=== PATIENT | female | born 1940 | race Caucasian/White ===

== ENCOUNTER 2019-11-29 13:50 | Inpatient (IN) | payer MEDICARE, BC ==
[~2019-11-29] VITALS: Ht 165.1 cm; Wt 59.9 kg
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
--- NOTE | 2019-11-29 14:17 | NUR ---
EMT AT BEDSIDE FOR WOUND CARE
[2019-11-29] MEDS ORDERED: TDAP [DIPH/PERTUSSIS/TET] 0.5 ML VIAL IM ONE ×2 (14:26→14:30)
[2019-11-29] MEDS ORDERED: CEFAZOLIN 1 GM in IV NS 0.9% 50 ML IV SCH (14:30)
[2019-11-29 14:33] LABS: BASOPHILS # (AUTO) 0.1 /CMM (0.0-0.2); BASOPHILS % (AUTO) 1.2 % (0.0-2.0); EOSINOPHILS % (AUTO) 1.5 % (0.0-6.0); HEMATOCRIT 36 % (33-45); HEMOGLOBIN 11.6 g/dL (11.5-14.8); LYMPHOCYTES # (AUTO) 0.9 /CMM (0.8-4.8); LYMPHOCYTES % (AUTO) 11.5 % (20.0-44.0); MEAN CORPUSCULAR HGB CONC 32 g/dl (31.0-36.0); MEAN CORPUSCULAR VOLUME 91 fL (82-100); MONOCYTES # (AUTO) 0.5 /CMM (0.1-1.30); MONOCYTES % (AUTO) 6.9 % (2.0-12.0); NEUTROPHILS # (AUTO) 6.1 /CMM (1.8-8.9); NEUTROPHILS % (AUTO) 78.9 % (43.0-81.0); PLATELET COUNT (AUTO) 229 /CMM (150-450); RED BLOOD CELL COUNT(AUTO) 3.94 MIL/uL (4.0-5.2); WHITE BLOOD COUNT (AUTO) 7.7 K/uL (4.3-11.0)
--- NOTE | 2019-11-29 14:37 | NUR ---
XRAY AT BEDSIDE
[2019-11-29 14:39] LABS: CREATININE 0.7 mg/dL (0.6-1.3); POTASSIUM 4.2 mmol/L (3.5-5.1)
--- NOTE | 2019-11-29 14:50 | NUR ---
CALLED SHYAM ARIZA FOR CONSULT, PAGED ROB
[2019-11-29] MEDS ORDERED: METO25TA4 PO (14:55)
[2019-11-29] MEDS ORDERED: RIVA10TA PO (14:55)
[2019-11-29] MEDS ORDERED: ERGO500014 PO (14:55)
--- NOTE | 2019-11-29 15:10 | NUR ---
CALLED ROB RAMIREZ
--- NOTE | 2019-11-29 15:12 | NUR ---
CALLED SHYAM WETZEL, MELANIE MENDEZ
[2019-11-29] MEDS ORDERED: PIPERACILLIN /TAZOBACTAM 3.375 G in IV D5W 50 ML IV ONE (15:30)
--- NOTE | 2019-11-29 16:31 | NUR ---
ORTHO ON-CALL PAGED AGAIN
--- NOTE | 2019-11-29 16:41 | NUR ---
BED 200
[2019-11-29] MEDS ORDERED: MORPHINE SULFATE INJ 2 MG/ML DISP.SYRIN ONE ×2 (16:57→17:47)
[2019-11-29] MEDS ORDERED: IV NS 0.9% 1,000 ML BAG IV ONE (17:00)
[2019-11-29] MEDS ORDERED: MORPHINE SULFATE INJ 2 MG/ML DISP.SYRIN IV ONE (17:00)
--- NOTE | 2019-11-29 17:03 | NUR ---
PT AMBULATED TO THE RESTROOM WITH ASSISTANCE
--- NOTE | 2019-11-29 17:25 | NUR ---
REPORT GIVEN TO JENNIFER HENDRIX FOR [place]
--- NOTE | 2019-11-29 17:44 | NUR ---
EMT AT BEDSIDE FOR SPLINT PLACEMENT
[2019-11-29] MEDS ORDERED: MORPHINE SULFATE INJ 2 MG/ML DISP.SYRIN IV PRN ×2 (18:00→19:30)
--- NOTE | 2019-11-29 18:00 | NUR ---
PT TRANSFERED TO BED 200 MS
--- NOTE | 2019-11-29 18:05 | NUR ---
RN MS NOTES RECEIVED PT FROM E.R. STAFF, VIA VIV, PT IS AWAKE, ALERT AND ORIENTED, ASSISTED TO BED, MADE COMFORTABLE, ROOM SET UP ORIENTATION PROVIDED TO PT, VERBALIZED UNDERSTANDING, NO COMPLAINT AT THIS TIME, SPLINT AT LEFT WRIST IN PLACE, NOT IN DISTRESS, AWAITING ADMITTING ORDERS FROM DR. ARGUELLO, KEPT PT COMFORTABLE.
[2019-11-29 18:30] VITALS: BP 133/69
--- NOTE | 2019-11-29 19:00 | NUR ---
MS CAP SIZER NOTE RECEIVED PATIENT IN BED FROM DAY SHIFT RN. TOLERATING ROOM AIR. RESPIRATIONS ARE EVEN AND UNLABORED. NO S/S SOB NOTED. IN NO APPARENT DISTRESS. IV ACCESS IN RFA#20 PATENT AND SALINE LOCKED. INITIAL PHYSICAL ASSESSMENT COMPLETED AT THIS TIME. SKIN ASSESSMENT COMPLETED AND PICTURES TAKEN OF WOUNDS PLACED IN CHART. PATIENT HAS A ARM STABILIZERS FOR THE LEFT WRIST. BED IS LOW AND LOCKED, SIDE RIALS UP X2, HOB ELEVATED IN HIGH FOWLERS POSITION. DAUGHTER AT BEDSIDE. CALL LIGHT WITHIN REACH. WILL CONTINUE TO MONITOR.
--- NOTE | 2019-11-29 19:02 | NUR ---
RN MS NOTES RECEIVED ORDER FROM DR. BRASWELL FOR ORIF OF LEFT WRIST, PT INFORMED, CONSENTS GIVEN, PLAN FOR O.R. AT 9:30, VITAL SIGNS TAKEN AND RECORDED.
[2019-11-29] MEDS ORDERED: IV NS 0.9% 1,000 ML IV PRN (19:06)
[2019-11-29] MEDS ORDERED: ZOLPIDEM TARTRATE 5 MG TABLET PO PRN (19:30)
[2019-11-29] MEDS ORDERED: ONDANSETRON HCL/PF 4 MG/2 ML VIAL IVP PRN (19:30)
[2019-11-29] MEDS ORDERED: HYDROCODONE/APAP 5/325MG 1 EACH TABLET PO PRN (19:30)
[2019-11-29] MEDS ORDERED: MAG HYDROX/AL HYDROX/SIMETH 30 ML UDC PO PRN (19:30)
[2019-11-29] MEDS ORDERED: MAGNESIUM HYDROXIDE 30 ML UDC PO PRN (19:30)
[2019-11-29] MEDS ORDERED: Z GUARD REMEDY 2 OZ OINT TP PRN (19:30)
[2019-11-29 20:00] VITALS: BP 128/54
[2019-11-29] MEDS: PIPERACILLIN /TAZOBACTAM 3.375 G in IV D5W 50 ML IV SCH ×2 (20:33→23:41)
[2019-11-29] MEDS ORDERED: MIDAZOLAM HCL 2 MG/2ML VIAL ONE (20:53)
[2019-11-29] MEDS ORDERED: FENTANYL PF 250MCG/5ML AMPUL ONE (20:54)
[2019-11-29] MEDS ORDERED: FAMOTIDINE/PF INJ 20 MG/2 ML VIAL IV ONE (20:54)
[2019-11-29] MEDS ORDERED: ROCURONIUM BROMIDE 50 MG/5 ML ONE (20:55)
--- NOTE | 2019-11-29 21:00 | NUR ---
MS RN NOTE PATIENT DID NOT GO TO SURGERY SCHEDULED D/T NPO STATUS NOT MAINTAINED. DAUGHTER AT BEDSIDE HAS BEEN PROVIDING MOTHER WITH WATER SINCE THEY HAVE BEEN HOSPITALIZED. INCIDENT REPORT COMPLETED. WILL MAINTAIN NPO STATUS FROM 0000 UNTIL SURGERY AT 0700.
--- NOTE | 2019-11-29 22:09 | NUR ---
MS RN NOTE ADMINISTERED PRN NORCO 5/325 FOR PAIN 5/10 IN LEFT WRIST. WILL CONTINUE TO MONITOR.
[2019-11-30] VITALS (13 sets, daily range): BP systolic 104–128; BP diastolic 50–72
[2019-11-30] MEDS: PIPERACILLIN /TAZOBACTAM 3.375 G in IV D5W 50 ML IV SCH (05:19)
[2019-11-30 06:12] LABS: BASOPHILS % (AUTO) 0.3 % (0.0-2.0); HEMATOCRIT 32 % (33-45); HEMOGLOBIN 10.7 g/dL (11.5-14.8); LYMPHOCYTES # (AUTO) 0.6 /CMM (0.8-4.8); LYMPHOCYTES % (AUTO) 8.8 % (20.0-44.0); MEAN CORPUSCULAR HGB CONC 33 g/dl (31.0-36.0); MEAN CORPUSCULAR VOLUME 90 fL (82-100); MONOCYTES # (AUTO) 0.9 /CMM (0.1-1.30); NEUTROPHILS # (AUTO) 5.7 /CMM (1.8-8.9); NEUTROPHILS % (AUTO) 78.9 % (43.0-81.0); PLATELET COUNT (AUTO) 205 /CMM (150-450); WHITE BLOOD COUNT (AUTO) 7.2 K/uL (4.3-11.0)
[2019-11-30 06:43] LABS: CHOLESTEROL 125 mg/dL (<200); HDL CHOLESTEROL 73 mg/dL (40-60); LDL 49 mg/dL (0-99); TRIGLYCERIDES 23 mg/dL (30-150)
[2019-11-30 06:47] LABS: ALANINE AMINOTRANSFERASE 33 U/L (12-78); ALBUMIN 2.8 g/dL (3.4-5.0); ALKALINE PHOSPHATASE 82 U/L (46-116); ASPARTATE AMINOTRANSFERASE 22 U/L (15-37); BILIRUBIN,TOTAL 0.6 mg/dL (0.2-1.0); CALCIUM, SERUM 8.7 mg/dL (8.5-10.1); CARBON DIOXIDE 24 mmol/L (21-32); CHLORIDE 104 mmol/L (98-107); CREATININE 0.5 mg/dL (0.6-1.3); GLUCOSE 154 mg/dL (74-106); PHOSPHORUS 3.2 mg/dL (2.5-4.9); POTASSIUM 3.7 mmol/L (3.5-5.1); SODIUM SERUM 138 mmol/L (136-145); UREA NITROGEN, BLOOD 14 mg/dL (7-18)
--- NOTE | 2019-11-30 07:00 | NUR ---
MS RN NOTE 0700 PATIENT WAS TRANSPORTED TO SURGERY BY 2 O.R. NURSES. WILL ENDORSE TO NEXT SHIFT.
[2019-11-30] MEDS ORDERED: BACITRACIN 50000 UNITS/VIAL ONE ×2 (07:06→08:36)
[2019-11-30] MEDS ORDERED: BUPIVACAINE 0.5 % PF 150 MG/30 ML VIAL ONE (07:06)
[2019-11-30] MEDS ORDERED: ANESTHESIA TRAY IN PYXIS 1 EA TRAY MC ONE (07:06)
--- NOTE | 2019-11-30 07:10 | NUR ---
MS RN OPENING NOTE PATIENT TRANSPORTED, GOING TO SURGERY. PATIENT IN NO ACUTE DISTRESS. NO SOB NOTED. PATIENT BREATHING IS EVEN AND UNLABORED.
[2019-11-30] MEDS ORDERED: POLYMYXIN B SULFATE 500,000 UNITS VIAL MC ONE (07:46)
[2019-11-30] MEDS: DOCUSATE SODIUM 100 MG CAPSULE PO SCH ×2 (08:02→17:15)
--- NOTE | 2019-11-30 08:03 | NUR ---
MS RN NOTE HELD DOCUSATE, PATIENT NPO AND IN SURGERY AT THIS TIME.
--- NOTE | 2019-11-30 08:40 | NUR ---
WOUND CARE CONSULT: PT IN O.R. AT THIS TIME. WILL SEE PRN.
--- NOTE | 2019-11-30 10:15 | NUR ---
MS RN NOTE PATIENT ARRIVED BACK TO ROOM FROM SURGERY. PATIENT IN NO ACUTE DISTRESS. NO SOB NOTED. PATIENT BREATHING IS EVEN AND UNLABORED. VITAL SIGNS WNL. PATIENT SURGICAL DRESSING DRY AND INTACT. WILL FOLLOW UP POST OP ORDERS. WILL CONTINUE TO MONITOR.
[2019-11-30] MEDS ORDERED: HYDROCODONE/APAP 5/325MG 1 EACH TABLET PO PRN (10:30)
--- NOTE | 2019-11-30 10:59 | NUR ---
WOUND CARE CONSULT: PT SEEN FOR SKIN ASSESSMENT AND NOTED TO HAVE RT AND LEFT WRIST PUNCTURE WOUNDS AND LEFT LOWER LEG PUNCTURE WOUNDS, S/P DOG BITES, PRESENT ON ADMISSION. PT ALSO HAS LEFT ARM SURGICAL SITE WITH SUTURES AND XEROFORM DSG. PT SEEN WITH DR BRASWELL AND PLASTIC SURGERY/DPM CONSULTS REQUESTED. DR BETTS NOTIFIED.
[2019-11-30] MEDS: IV LR 1000 ML 1,000 ML IV PRN (11:04)
--- NOTE | 2019-11-30 11:38 | NUR ---
MS RN NOTE CALLED TO DEPARTMENT OF PUBLIC HEALTH, SPOKE WITH DR. MICHELLE VICENTE REGARDING PATIENTS DOG BITE ENCOUNTER AND RECOMMENDATIONS REGARDING RABIES SHOT. PER MD IT IS HER RECOMMENDATION NOT TO GIVE THE RABIES SHOT DUE TO LOW RISK IN [facility] WITH DOGS AND RABIES. REPORTED RECOMMENDATIONS TO DR. HAMEED. MADE AWARE AND NO NEW ORDERS AT THIS TIME. Addendum: 11/30/19 at 1147 by BEBETO MUHAMMAD RN MS RN NOTE CALLED TO DEPARTMENT OF PUBLIC HEALTH, SPOKE WITH DR. MICHELLE VICENTE REGARDING PATIENTS DOG BITE ENCOUNTER AND RECOMMENDATIONS REGARDING RABIES SHOT. PER MD IT IS HER RECOMMENDATION NOT TO GIVE THE RABIES SHOT DUE TO LOW RISK IN [facility] WITH DOGS AND RABIES. NO NEED FOR TITERS WELL PER DR. VICENTE. REPORTED RECOMMENDATIONS TO DR. HAMEED. MADE AWARE AND NO NEW ORDERS AT THIS TIME.
[2019-11-30] MEDS: ANCEF 1 G in IV D5W 50 ML IV SCH ×2 (15:23→23:24)
--- NOTE | 2019-11-30 18:07 | NUR ---
MS RN NOTE PATIENT IS ALERT AND ORIENTED X4. DAUGHTER BROUGHT ADVANCED DIRECTIVES BUT IT IS PATIENTS WISHES TO BE FULL CODE AT THIS TIME. DAUGHTER IS ALSO MADE AWARE.
--- NOTE | 2019-11-30 18:24 | NUR ---
MS RN CLOSING NOTE PATIENT RESTING COMFORTABLY IN BED. PATIENT DAUGHTER AT THE BEDSIDE. PATIENT IN NO ACUTE DISTRESS. NO SOB NOTED. PATIENT BREATHING IS EVEN AND UNLABORED. PATIENT KEPT CLEAN AND DRY THROUGHOUT SHIFT. PATIENT SURGICAL DRESSING DRY AND INTACT. WOUND CARE PROVIDED ORDERED. PATIENT EXTREMITIES OFFLOADED ON PILLOWS. PATIENT NEEDS AND CONCERNS ADDRESSED. PATIENT IN NO PAIN AT THIS TIME. PATIENT BED IS LOCKED AND IN LOWEST POSITION. CALL LIGHT WITHIN REACH. WILL ENDORSE CARE TO PM SHIFT FOR [place].
--- NOTE | 2019-11-30 19:00 | NUR ---
RN MS OPENING NOTES RECEIVED PATIENT IN BED AWAKE ALERT AND ORIENTED X 4, RESPIRATIONS EVEN AND UNLABORED WITH EQUAL RISE AND FALL OF CHEST, DENIES ANY PAIN AT THIS TIME, SLING IN PLACE TO LEFT ARM, IV SITE TO RIGHT FA #20 INTACT AND PATENT,NO REDNESS, NO INFILTRATION PRESENT, IVF RUNNING ORDERED,SAFETY PRECAUTIONS IN PLACE, LOW BED AND LOCKED, ALL NEEDS ATTENDED AT THIS TIME, ORIENTED TO STAFF AND CALL LIGHT AND KEPT WITHIN REACH, ALL NEEDS ATTENDED AT THIS TIME, WILL CONTINUE TO MONITOR AND ATTEND TO NEEDS.
[2019-11-30] MEDS: AMOX/CLAVULANATE 875 MG TABLET PO SCH (20:53)
[2019-11-30] MEDS ORDERED: AMOX/CLAVULANATE 875 MG TABLET PO SCH (21:00)
--- NOTE | 2019-11-30 21:51 | NUR ---
RN MS NOTES PATIENT COMPLAINT OF PAIN TO LEFT ARM AND HAND 5/10 REQUESTING FOR PAIN MEDICATION, PER PATIENT WILL TAKE NORCO, PRN NORCO GIVEN ORDERED, VS WNL. WILL CONTINUE TO MONITOR FOR EFFECTIVENESS, TOILETING OFFERED REPOSITIONING DONE RECOMMENDED PER MD. CALL LIGHT KEPT WITHIN REACH.
[2019-12-01] MEDS: IV LR 1000 ML 1,000 ML IV PRN (04:43)
[2019-12-01 06:03] LABS: BASOPHILS % (AUTO) 0.2 % (0.0-2.0); EOSINOPHILS % (AUTO) 0.2 % (0.0-6.0); HEMATOCRIT 33 % (33-45); HEMOGLOBIN 10.8 g/dL (11.5-14.8); LYMPHOCYTES # (AUTO) 1.2 /CMM (0.8-4.8); LYMPHOCYTES % (AUTO) 14.7 % (20.0-44.0); MEAN CORPUSCULAR HGB CONC 33 g/dl (31.0-36.0); MEAN CORPUSCULAR VOLUME 90 fL (82-100); MONOCYTES # (AUTO) 1.1 /CMM (0.1-1.30); MONOCYTES % (AUTO) 13.3 % (2.0-12.0); NEUTROPHILS % (AUTO) 71.6 % (43.0-81.0); PLATELET COUNT (AUTO) 189 /CMM (150-450); RED BLOOD CELL COUNT(AUTO) 3.61 MIL/uL (4.0-5.2); WHITE BLOOD COUNT (AUTO) 8.3 K/uL (4.3-11.0)
[2019-12-01 06:11] LABS: CALCIUM, SERUM 8.7 mg/dL (8.5-10.1); CARBON DIOXIDE 26 mmol/L (21-32); CHLORIDE 107 mmol/L (98-107); CREATININE 0.5 mg/dL (0.6-1.3); GLUCOSE 132 mg/dL (74-106); POTASSIUM 3.7 mmol/L (3.5-5.1); SODIUM SERUM 141 mmol/L (136-145); UREA NITROGEN, BLOOD 14 mg/dL (7-18)
--- NOTE | 2019-12-01 06:21 | NUR ---
RN MS CLOSING NOTES PATIENT IN BED AWAKE ALERT AND ORIENTED X 4, RESPIRATIONS EVEN AND UNLABORED WITH EQUAL RISE AND FALL OF CHEST, DENIES ANY PAIN AT THIS TIME, SLING IN PLACE TO LEFT ARM AND ELEVATED RECOMMENDED, IV SITE TO RIGHT FA #20 INTACT AND PATENT,NO REDNESS, NO INFILTRATION PRESENT, IVF RUNNING ORDERED,SAFETY PRECAUTIONS IN PLACE, LOW BED AND LOCKED, ALL NEEDS ATTENDED AT THIS TIME, WOUND CARE DRESSINGS REMAIN CLEAN DRY AND INTACT, TOILETING NEEDS RENDERED, CALL LIGHT KEPT WITHIN REACH, ALL NEEDS ATTENDED AT THIS TIME, WILL CONTINUE TO MONITOR AND ATTEND TO NEEDS AND ENDORSE TO NEXT, NO CHANGES NOTED THROUGHOUT SHIFT. NORCO WAS EFFECTIVE PATIENT SLEPT WELL.
--- NOTE | 2019-12-01 07:11 | NUR ---
MS RN OPENING NOTE PATIENT IN BED RESTING COMFORTABLY. PATIENT IN NO ACUTE DISTRESS. NO SOB NOTED. PATIENT BREATHING IS EVEN AND UNLABORED. BED ALARM IS ON. SAFETY PRECAUTIONS IN PLACE. PATIENT STATES NO PAIN AT THIS TIME. PATIENT HOB IS ELEVATED. IV INTACT AND PATENT. SURGICAL DRESSING DRY AND INTACT. PATIENT BED IS LOCKED AND IN LOWEST POSITION. CALL LIGHT WITHIN REACH. WILL CONTINUE TO MONITOR.
[2019-12-01 08:17] VITALS: BP 123/60
[2019-12-01] MEDS: DOCUSATE SODIUM 100 MG CAPSULE PO SCH ×2 (08:18→16:44)
[2019-12-01] MEDS: MUPIROCIN OINT 2% 22 GM TUBE TP SCH (08:18)
[2019-12-01] MEDS: AMOX/CLAVULANATE 875 MG TABLET PO SCH ×2 (08:18→21:09)
--- NOTE | 2019-12-01 10:04 | NUR ---
MS RN NOTE PATIENT SEEN AND EVALUATED BY DR. HAMEED. PER DR. HAMEED ORDERS FOR ME TO CONTINUE HOME MEDICATION METOPROLOL SUCCINATE ON MED RECON.
[2019-12-01 16:00] VITALS: BP 102/54
[2019-12-01] MEDS: METOPROLOL SUCCINATE 25 MG TAB.SR.24H PO SCH (16:45)
[2019-12-01] MEDS ORDERED: RIVAROXABAN 10 MG TABLET PO SCH (17:00)
[2019-12-01] MEDS: ACETAMINOPHEN 325 MG TABLET PO PRN (17:23)
--- NOTE | 2019-12-01 18:28 | NUR ---
MS RN CLOSING NOTE PATIENT RESTING COMFORTABLY IN BED. PATIENT IN NO ACUTE DISTRESS. NO SOB NOTED. PATIENT BREATHING IS EVEN AND UNLABORED. PATIENT KEPT CLEAN AND DRY THROUGHOUT SHIFT. PATIENT SURGICAL DRESSING DRY AND INTACT. WOUND CARE PROVIDED ORDERED. PATIENT EXTREMITIES OFFLOADED ON PILLOWS. PATIENT NEEDS AND CONCERNS ADDRESSED. PATIENT IN NO PAIN AT THIS TIME. PATIENT BED IS LOCKED AND IN LOWEST POSITION. CALL LIGHT WITHIN REACH. WILL ENDORSE CARE TO PM SHIFT FOR [place].
[2019-12-01 19:56] VITALS: BP 107/61
[2019-12-01 20:00] VITALS: BP 107/61
[2019-12-02] MEDS: IV LR 1000 ML 1,000 ML IV PRN (01:56)
[2019-12-02] MEDS: ACETAMINOPHEN 325 MG TABLET PO PRN (04:38)
--- NOTE | 2019-12-02 04:38 | NUR ---
rn ms notes patient request tylenol states her pain is annoying. pain to wound sites tylenol prn as ordered given will continue to monitor for effectiveness.
--- NOTE | 2019-12-02 06:14 | NUR ---
RN MS CLOSING NOTES PATIENT IN BED SLEEPING BUT EASILY AROUSABLE, ALERT AND ORIENTED X 4, RESPIRATIONS EVEN AND UNLABORED WITH EQUAL RISE AND FALL OF CHEST, DENIES ANY PAIN AT THIS TIME, SLING IN PLACE TO LEFT ARM, IV SITE TO RIGHT FA #20 INTACT AND PATENT,NO REDNESS, NO INFILTRATION PRESENT, IVF RUNNING ORDERED,SAFETY PRECAUTIONS IN PLACE, LOW BED AND LOCKED, ALL NEEDS ATTENDED AT THIS TIME,TOILETING AND FLUIDS RENDERED, CALL LIGHT KEPT WITHIN REACH, ALL NEEDS ATTENDED AT THIS TIME, WILL CONTINUE TO MONITOR AND ATTEND TO NEEDS AND ENDORSE TO NEXT SHIFT, NO S/S OF BLEEDING. DRESSINGS REMAIN CLEAN DRY AND INTACT, LEFT ARM ELEVATED ORDERED.
[2019-12-02 06:25] LABS: BASOPHILS # (AUTO) 0.1 /CMM (0.0-0.2); BASOPHILS % (AUTO) 0.8 % (0.0-2.0); EOSINOPHILS % (AUTO) 1.3 % (0.0-6.0); HEMATOCRIT 30 % (33-45); HEMOGLOBIN 10.3 g/dL (11.5-14.8); LYMPHOCYTES # (AUTO) 1.2 /CMM (0.8-4.8); LYMPHOCYTES % (AUTO) 17.3 % (20.0-44.0); MEAN CORPUSCULAR HGB CONC 34 g/dl (31.0-36.0); MEAN CORPUSCULAR VOLUME 89 fL (82-100); MONOCYTES # (AUTO) 0.8 /CMM (0.1-1.30); MONOCYTES % (AUTO) 11.2 % (2.0-12.0); NEUTROPHILS % (AUTO) 69.4 % (43.0-81.0); PLATELET COUNT (AUTO) 184 /CMM (150-450); WHITE BLOOD COUNT (AUTO) 7.2 K/uL (4.3-11.0)
[2019-12-02 06:57] LABS: CALCIUM, SERUM 8.6 mg/dL (8.5-10.1); CARBON DIOXIDE 28 mmol/L (21-32); CHLORIDE 108 mmol/L (98-107); CREATININE 0.5 mg/dL (0.6-1.3); GLUCOSE 100 mg/dL (74-106); POTASSIUM 3.7 mmol/L (3.5-5.1); SODIUM SERUM 142 mmol/L (136-145); UREA NITROGEN, BLOOD 8 mg/dL (7-18)
--- NOTE | 2019-12-02 07:30 | NUR ---
RN MS NOTES PT IN BED, AWAKE, ALERT AND ORIENTED, WITH COMPLAINT OF SOME PAIN AT LEFT WRIST, NOT IN DISTRESS, IV FLUIDS INFUSING WELL, PLAN OF CARE DISCUSSED WITH PT, VERBALIZED UNDERSTANDING, CALL LIGHT WITHIN REACH, NEEDS ATTENDED.
[2019-12-02 08:00] VITALS: BP 117/64
[2019-12-02 08:23] VITALS: BP 117/64
[2019-12-02] MEDS: DOCUSATE SODIUM 100 MG CAPSULE PO SCH (08:23)
[2019-12-02] MEDS: METOPROLOL SUCCINATE 25 MG TAB.SR.24H PO SCH (08:23)
[2019-12-02] MEDS: AMOX/CLAVULANATE 875 MG TABLET PO SCH (08:23)
[2019-12-02] MEDS: MUPIROCIN OINT 2% 22 GM TUBE TP SCH (08:24)
[2019-12-02] MEDS ORDERED: Amox/Clavulanate PO (10:00)
--- NOTE | 2019-12-02 12:01 | NUR ---
SW typed verification of admission letter for [facility] [employer] since pt. had to miss her flight from [facility] to [place] on 11/29/19.
--- NOTE | 2019-12-02 12:30 | NUR ---
RN MS NOTES PT IN BED, AWAKE, ALERT AND ORIENTED, NO COMPLAINT OF PAIN, NOT IN DISTRESS, ABLE TO AMBULATE TO THE BATHROOM AND ALONG THE HALLWAY, SEEN BY DR. HAMEED, DR. EDEN AND GUERA MARTINEZ, DISCHARGE ORDER GIVEN BY DR. HAMEED, DISCHARGE AND MEDICATION INSTRUCTIONS PROVIDED TO PT, VERBALIZED UNDERSTANDING, PATIENT TEACHING ON WOUND CARE DONE, PRESCRIPTION CALLED TO [facility] PER INSTRUCTIONS OF DR. HAMEED, BELONGINGS ACCOUNTED, FOR, WOUND CARE PROVIDED, DRESSING CHANGE DONE, PHOTOS TAKEN.
--- NOTE | 2019-12-02 15:06 | NUR ---
RN MS NOTES PT SITTING ON HER BED, NOT IN PAIN, NOT IN DISTRESS, PICKED UP BY DAUGHTER, SLING IN PLACE, ASSISTED TO HOSPITAL LOBBY BY HYDROGEOLOGY PROFESSOR VIA WHEELCHAIR, LEFT IN STABLE CONDITION.
== END 2019-12-02 15:05 | disposition home health service (06) | DRG 511 ==
LOC: ER 13:59 → MEDSG2 17:36
PROVIDERS: ADMIT Hospitalist; ATTEND Family Medicine
PROC: 0PSJ04Z Reposition Left Radius with Internal Fixation Device, Open Approach (ICD-10-PCS; principal; 2019-11-30)
PROC: 0LD80ZZ Extraction of Left Hand Tendon, Open Approach (ICD-10-PCS; 2019-11-30)
PROC: 01N50ZZ Release Median Nerve, Open Approach (ICD-10-PCS; 2019-11-30)
DX: S52.592A Other fractures of lower end of left radius, initial encounter for closed fracture (principal); D68.69 Other thrombophilia; W54.0XXA Bitten by dog, initial encounter; Y92.009 Unspecified place in unspecified non-institutional (private) residence as the place of occurrence of the external cause; I48.91 Unspecified atrial fibrillation; S91.032A Puncture wound without foreign body, left ankle, initial encounter; I25.2 Old myocardial infarction; Z79.01 Long term (current) use of anticoagulants; M19.042 Primary osteoarthritis, left hand; S61.512A Laceration without foreign body of left wrist, initial encounter; M20.42 Other hammer toe(s) (acquired), left foot; M20.41 Other hammer toe(s) (acquired), right foot; M21.612 Bunion of left foot; M21.611 Bunion of right foot; S81.802A Unspecified open wound, left lower leg, initial encounter; S41.132A Puncture wound without foreign body of left upper arm, initial encounter; S41.131A Puncture wound without foreign body of right upper arm, initial encounter; D64.9 Anemia, unspecified; M85.80 Other specified disorders of bone density and structure, unspecified site; Z96.651 Presence of right artificial knee joint; Z96.641 Presence of right artificial hip joint
CPT/HCPCS: 36415; 71045-TC; 73090-TC; 73110; 73130-TC; 73590-TC; 80048-TC; 80053-TC; 80061-TC; 83735-TC; 84100-TC; 85025-TC; 85730-TC; 87081-TC; 90715; 97116-TC; 97530-TC; A4216; A4217; A4565; A6253; A6402; A6403; C1713; G0378; J0690; J1100; J2250; J2270; J2405; J2543; J2704; J3010; J3490; J7030; J7060; J7120